=== PATIENT | female | born 1950 | race Caucasian/White ===

== ENCOUNTER 2017-03-25 15:40 | Emergency (ER) | payer MEDICARE ==
[~2017-03-25] VITALS: Ht 157.5 cm; Wt 53.0 kg
[~2017-03-25 15:40] MED LIST: ATOR20TA15 PO; CYMB30CA PO; HYDR-3583 PO; LORA-373 PO; METO25TA3 PO; PRED10PA2 PO
[2017-03-25 15:42] VITALS: BP 148/87; PULSE 67; RESP 16; TEMP 98.6; O2SAT 96
--- NOTE | 2017-03-25 15:52 | PD ---
Physical Exam Date Seen by Provider: Mar 25, 2017 Time Seen by Provider: 15:50 Narrative 67 yo female here for evaluation of pain. Patient reports SOB, pain to head and the eye. Nausea and vomit. Dizzy. Neck pain as well. Going on for a few days. No injuries per patient. History of chronic pain and anxiety. Vitals are stable in triage. Awaiting bed placement. Data Data Last Documented VS Vital Signs Date Time Temp Pulse Resp B/P (MAP) Pulse Ox O2 Delivery O2 Flow Rate FiO2 03/25/17 15:42 98.6 67 16 148/87 (107) 96 MDM Medical Record Reviewed: Yes Supervised Visit with [facility]: No Chriss Peoples Mar 25, 2017 15:52
--- NOTE | 2017-03-25 17:02 | RADRPT ---
EXAM DATE/TIME: 03/25/2017 16:34 [facility] COMPARISON: No previous studies available for comparison. INDICATIONS : Chest pain. MEDICAL HISTORY : None. SURGICAL HISTORY : None. ENCOUNTER: Initial ACUITY: 1 day PAIN SCORE: 0/10 LOCATION: Bilateral chest FINDINGS: PA and lateral views of the chest demonstrate the lungs to be symmetrically aerated without evidence of mass, infiltrate or effusion. The cardiomediastinal contours are unremarkable. Osseous structure s are intact. The aortic knob is prominent with tortuosity of the descending thoracic aorta. CONCLUSION: 1. No acute cardiopulmonary disease. Gary Morgan MD on March 25, 2017 at 17:00 Board Certified Radiologist. This report was verified electronically.
[2017-03-25] MEDS ORDERED: METOCLOPRAMIDE HCL 10 MG/2 ML VIAL IVP ONE (18:00)
[2017-03-25] MEDS ORDERED: SODIUM CHLOR 0.9% 1000 ML INJ 1,000 ML IV ONE (18:00)
[2017-03-25] MEDS ORDERED: diphenhydrAMINE HCL 50 MG/ML VIAL IVP ONE (18:00)
[2017-03-25] MEDS ORDERED: SODIUM CHLORIDE 0.9% FLUSH 10 ML FLUSH IVF PRN (18:00)
[2017-03-25] MEDS ORDERED: KETOROLAC TROMETHAMINE 30 MG/ML (IVP) VIAL IVP ONE (18:00)
--- NOTE | 2017-03-25 18:02 | PD ---
HPI Chief Complaint: Medical Clearance Time Seen by Provider: 17:36 Travel History International Travel<30 days: No Contact w/Intl Traveler<30days: No Traveled to known affect area: No History of Present Illness HPI 67-year-old female with PMH of anxiety, chronic neck and back pain presents to the ED for evaluation of neck pain, back pain, headache. 11/23 headache pain starts in the neck and radiates behind the left eye. Patient endorses accompanying dizziness, nausea, vomiting. She denies vision changes, numbness, tingling, weakness, limitations to range of motion of the extremities, saddle anesthesia, urinary incontinence, new injury. She states that she took 5 mg Lortab at noon today with no improvement of her symptoms. She saw her primary care provider last week with complaint of same neck and back pain who encouraged her to follow up with the pain management provider. PFSH Past Medical History Arthritis: Yes Anxiety: Yes Depression: Yes Cardiovascular Problems: Yes (RAPID HEART RATE) Diminished Hearing: No Musculoskeletal: Yes (DEGENERATIVE DISC DX) Immunizations Current: No ?: Not : 2 Para: 2 Tubal Ligation: Yes Past Surgical History Other Surgery: Yes (MULTIPLE CLEFT PALLET REPAIRS TIL AGE 18) Social History Alcohol Use: No Tobacco Use: No Substance Use: No (PT DENIES) Allergies-Medications (Allergen,Severity, Reaction): Coded Allergies: No Known Allergies (Unverified , 03/25/17) Reported Meds & Prescriptions Reported Meds & Active Scripts Active Reported Atorvastatin (Atorvastatin Calcium) 20 Mg Tab 20 Mg PO HS Lorazepam 0.5 Mg Tab 0.5 Mg PO BID Hydrocodone-Acetaminophen 10-325 mg Tab 1 Tab PO Q6HR PRN Metoprolol Tartrate 25 Mg Tab 25 Mg PO DAILY Review of Systems Except as stated in HPI: all other systems reviewed are Neg Physical Exam Narrative GENERAL: Well-nourished, well-developed slightly tremulous, anxious white female in no acute distress. SKIN: Focused skin assessment warm/dry. HEAD: Normocephalic. Atraumatic. EYES: No scleral icterus. No injection or drainage. PERRLA. EOMI. NECK: Supple, trachea midline. No JVD or lymphadenopathy. No midline tenderness to palpation. No limitations to ROM. CARDIOVASCULAR: Regular rate and rhythm without murmurs, gallops, or rubs. RESPIRATORY: Breath sounds clear and equal bilaterally. No accessory muscle use. GASTROINTESTINAL: Abdomen soft, non-tender, nondistended. Active bowel sounds. MUSCULOSKELETAL: No cyanosis, or edema. Patient is noted to ambulate normally. NEUROLOGICAL: Awake and alert. Cranial nerves II through XII intact. Motor and sensory grossly within normal limits. Five out of 5 muscle strength in all muscle groups. Normal speech. BACK: Nontender without obvious deformity. No CVA tenderness. Data Data Last Documented VS Vital Signs Date Time Temp Pulse Resp B/P (MAP) Pulse Ox O2 Delivery O2 Flow Rate FiO2 03/26/17 06:19 18 03/25/17 20:53 03/25/17 20:16 71 96 Room Air 03/25/17 15:42 98.6 Orders Orders Electrocardiogram (03/25/17 15:53) Chest, Pa & Lat (03/25/17 15:53) Ecg Monitoring (03/25/17 18:00) Iv Access Insert/Monitor (03/25/17 18:00) Oximetry (03/25/17 18:00) Sodium Chloride 0.9% Flush (Ns Flush) (03/25/17 18:00) Ketorolac Inj (Toradol Inj) (03/25/17 18:00) Diphenhydramine Inj (Benadryl Inj) (03/25/17 18:00) Metoclopramide Inj (Reglan Inj) (03/25/17 18:00) Sodium Chlor 0.9% 1000 Ml Inj (Ns 1000 M (03/25/17 18:00) Ct Brain W/O Iv Contrast(Rout) (03/25/17 18:02) Acetamin-Hydrocod 325-5 Mg ([place] 5-325 (03/25/17 19:15) Ed Discharge Order (03/25/17 20:30) MDM Medical Decision Making Medical Screen Exam Complete: Yes Emergency Medical Condition: Yes Differential Diagnosis Cephalgia versus migraine versus chronic neck pain versus chronic back pain versus other Narrative Course 67-year-old female with PMH of anxiety, chronic neck and back pain presents to the ED for evaluation of neck pain, back pain, 6/10 headache. Headache starts in the posterior neck and radiates behind the left eye. Patient endorses accompanying dizziness, nausea, vomiting. She denies vision changes, numbness, tingling, weakness, limitations to range of motion of the extremities, saddle anesthesia, urinary incontinence, new injury. Treated with 5mg Lortab at noon with no improvement. Vitals reviewed. Patient is very anxious appearing on presentation. No focal neuro deficits are noted. IV was established. Patient was administered IV Toradol, Compazine, Benadryl, 1 L normal saline. EKG rate 61. Sinus rhythm. RI interval 205, QRS 81, QTC 399 ms. Normal axis. No ST-T changes. Reviewed by Dr. Kessler. Head CT read reveals no acute intracranial abnormality per radiology read. On recheck the patient appears less anxious. She states that her headache has improved but now complains about her back pain. She was administered 5 mg Lortab PO. I reviewed [facility] and the patient is prescribed 10 mg Lortab and Xanax her primary care provider monthly. I recommended that the patient take the pain medication as prescribed. Patient states she is currently only taken the medication "as I need and half a pill at a time." I discussed the concern of addiction with the patient and recommended that she follow up with the pain management clinic for alternative treatments options. She is stable and discharged home. Diagnosis Primary Impression: Cephalgia Qualified Codes: R51 - Headache Additional Impression: Chronic neck and back pain Referrals: Alisha Chatman MD Pain Management Primary Care Physician Patient Instructions: Acute Headache (ED), Chronic Pain (ED), General Instructions Additional Instructions: Rest, hydrate. Return to normal, gentle activities as tolerated. Take at home medications as prescribed. Follow up with your PCP, pain management and/or neurology. Return to the ED for any urgent or emergent medical condition. Disposition: 01 DISCHARGE HOME Condition: Stable Kristi Norton Mar 25, 2017 18:02
[2017-03-25 18:30] VITALS: BP 133/60; PULSE 78; RESP 18; O2SAT 100
--- NOTE | 2017-03-25 19:00 | RADRPT ---
EXAM DATE/TIME: 03/25/2017 18:36 [facility] COMPARISON: No previous studies available for comparison. INDICATIONS : Head pain due to cephalgia and eye pain. RADIATION DOSE: 44.33 CTDIvol (mGy) MEDICAL HISTORY : Cardiovascular disease. SURGICAL HISTORY : Tubal ligation. ENCOUNTER: Initial ACUITY: 1 day PAIN SCALE: 7/10 LOCATION: Bilateral cranial TECHNIQUE: Multiple contiguous axial images were obtained of the head. Using automated exposure control and adj ustment of the mA and/or kV according to patient size, radiation dose was kept as low as reasonably a chievable to obtain optimal diagnostic quality images. DICOM format image data is available electro nically for review and comparison. FINDINGS: CEREBRUM: The ventricles are normal for age. There is bilateral cortical atrophy overlying the frontal lobes. No evidence of midline shift, mass lesion, hemorrhage or acute infarction. No extra-axial fluid princess ections are seen. POSTERIOR FOSSA: The cerebellum and brainstem are intact. The 4th ventricle is midline. The cerebellopontine angle i s unremarkable. EXTRACRANIAL: The visualized portion of the orbits is intact. SKULL: The calvaria is intact. No evidence of skull fracture. CONCLUSION: 1. No acute intracranial hemorrhage. 2. Bilateral cortical atrophy. Jamey Andres MD on March 25, 2017 at 18:58 Board Certified Radiologist. This report was verified electronically.
[2017-03-25] MEDS ORDERED: ACETAMINOPHEN/HYDROcodone 325 MG/5 MG TAB PO ONE (19:15)
[2017-03-25 19:26] VITALS: BP 127/68; PULSE 58; RESP 18; O2SAT 98
[2017-03-25 20:16] VITALS: BP 119/68; PULSE 71; RESP 18; O2SAT 96
[2017-03-26 06:19] VITALS: RESP 18
--- NOTE | 2017-03-26 23:49 | EKG ---
Date Performed: 03/25/2017 Time Performed: 17:57:14 PTAGE: 67 years EKG: Sinus rhythm WITH SINUS ARRHYTHMIA NON-SPECIFIC ST/T WAVE CHANGES PREVIOUS TRACING : 01/19/2014 15.46 Compared to the previous tracing, rate has increased DOCTOR: Cuate Sierra Interpretating Date/Time 03/26/2017 23:48:30
== END 2017-03-25 20:54 | disposition home or self-care (01) ==
LOC: NEPC 15:40
DX: R51 Headache (principal); M54.2 Cervicalgia; M54.9 Dorsalgia, unspecified; G89.29 Other chronic pain; R42 Dizziness and giddiness
CPT/HCPCS: 70450; 71020; 93005; 96361; 96374; 96375; 99285; J1200; J1885; J2765; J7030